=== PATIENT | female | born 1945 | race Caucasian/White ===

== ENCOUNTER → 2016-08-14 | Outpatient (CLI) | payer MEDICARE, OTHER ==
--- OUTSIDE RECORDS SUMMARY | 2016-08-14 13:37 | XMS REPORT | Continuity of Care Document ---
Author Author [facility] Organization [facility] Address Unknown Phone Unavailable Allergies Medications Problems Date Dx Coded Attending Type Code Diagnosis Diagnosed By 11/07/2015 JODI NEWMAN MD Ot Z12.31 ENCNTR SCREEN MAMMOGRAM FOR MALIGNANT NE Procedures Results Encounters ACCT No. Visit Date/Time Discharge Status Pt. Type Provider Facility Loc./Unit Complaint [id number] 10/16/2015 10:08:00 ACT Outpatient JODI NEWMAN MD [facility] RAD
--- NOTE | 2016-08-14 15:15 | Diagnostic Imaging Report ---
INDICATION: Left leg pain and numbness for eight months, low back pain. DISCUSSION: Three views of the lumbosacral spine were obtained, no comparison. There is mild rightward curvature of the lumbar spine, centered at L2-L3. No compression fracture. Advanced degenerative disc disease is noted diffusely throughout the lumbar spine. Grade 1 anterolisthesis is noted at the L4-L5 level, possibly secondary to advanced facet arthropathy which is also present diffusely throughout the lumbar spine. No significant degenerative disease within either sacroiliac joint. Soft tissues show moderate constipation. IMPRESSION: 1. Advanced degenerative changes and malalignment of the lumbar spine, as discussed above. 2. Constipation. Dictated by: Dictated on workstation # [id number]
--- NOTE | 2016-08-14 15:51 | Diagnostic Imaging Report ---
Sacrum and Coccyx. INDICATION: Pain. FINDINGS: AP and lateral views were obtained. There are no prior studies available for comparison. There is no fracture, dislocation, or acute bony abnormality evident. The distal sacrum and coccyx are difficult to visualize on the lateral view due to the patient's body habitus. There is mild symmetrical sclerosis of the sacroiliac joints. The soft tissues are unremarkable. IMPRESSION: There is no evidence for an acute bony abnormality. Dictated by: Dictated on workstation # [id number]
== END ==
LOC: RAD 13:33
PROVIDERS: ATTEND Internal Medicine
DX: M54.16 Radiculopathy, lumbar region (principal); R20.2 Paresthesia of skin
CPT/HCPCS: 72100; 72220

== ENCOUNTER → 2016-09-03 | Outpatient (CLI) | payer MEDICARE, OTHER ==
--- OUTSIDE RECORDS SUMMARY | 2016-09-03 11:59 | XMS REPORT | Continuity of Care Document ---
Author Author [facility] Organization [facility] Address Unknown Phone Unavailable Allergies Medications Problems Date Dx Coded Attending Type Code Diagnosis Diagnosed By 11/07/2015 JODI NEWMAN MD Ot Z12.31 ENCNTR SCREEN MAMMOGRAM FOR MALIGNANT NE 08/14/2016 JODI NEWMAN MD Ot Z12.31 ENCNTR SCREEN MAMMOGRAM FOR MALIGNANT NE 08/14/2016 JODI NEWMAN MD Ot M54.16 RADICULOPATHY, LUMBAR REGION 08/14/2016 JODI NEWMAN MD Ot R20.2 PARESTHESIA OF SKIN Procedures Results Encounters ACCT No. Visit Date/Time Discharge Status Pt. Type Provider Facility Loc./Unit Complaint [id number] 08/14/2016 13:33:00 ACT Outpatient JODI NEWMAN MD [facility] RAD LUMBAR RADICULOPATHY [id number] 10/16/2015 10:08:00 ACT Outpatient JODI NEWMAN MD [facility] RAD SCREENING
--- NOTE | 2016-09-03 13:08 | Diagnostic Imaging Report ---
PROCEDURE: MRI lumbar spine. TECHNIQUE: Multiplanar, multisequence MRI of the lumbar spine was performed without contrast. INDICATION: Low back pain. Left lower extremity pain and paresthesias. COMPARISON: Lumbar spine radiographs 08/14/2016. FINDINGS: There are 5 lumbar-type vertebral bodies. Mild right apex lumbar curvature. Grade 2 anterolisthesis of L4 on L5. Diffuse degenerative endplate changes with Modic type I signal changes at T11-T12. Bone marrow signal is otherwise unremarkable. Diffuse moderate to advanced degenerative facet arthropathy is greatest in the lower lumbar spine. No abnormal signal in the conus which terminates at L1. Normal configuration of the cauda equina without evidence of arachnoiditis. The visualized paravertebral soft tissues are unremarkable. T11-T12: Small annular disc bulge results in no substantial spinal canal or lateral recess narrowing. Disc space height loss and facet arthropathy result in moderate left and mild right neuroforaminal narrowing. T12-L1: No substantial spinal canal, lateral recess or neuroforaminal narrowing. L1-L2: There is a central disc extrusion with both inferior and superior migration. This combined with an annular disc bulge and ligamentous hypertrophy results in moderate spinal canal narrowing. Disc space height loss and facet arthropathy also contribute to advanced bilateral neuroforaminal narrowing. L2-L3: Annular disc bulge and ligamentous hypertrophy contribute to mild to moderate spinal canal narrowing with narrowing of the lateral recesses. Disc space height loss and facet arthropathy also contribute to advanced bilateral neuroforaminal narrowing. L3-L4: Annular disc bulge, ligamentous hypertrophy and facet arthropathy all contribute to advanced spinal canal narrowing. Disc space height loss and facet arthropathy also result in advanced bilateral neuroforaminal narrowing. L4-L5: The anterolisthesis, facet arthropathy and ligamentous hypertrophy all result in advanced spinal canal narrowing. Disc space height loss and facet arthropathy also contribute to advanced bilateral neuroforaminal narrowing. L5-S1: Small right paracentral disc extrusion with inferior migration mildly narrows the right lateral recess. There is no spinal canal or left lateral recess narrowing. No substantial neuroforaminal narrowing. IMPRESSION: 1. Spondylotic changes result in multilevel moderate to advanced spinal canal narrowing which is most advanced at L3-L4 and L4-L5 where there is complete loss of CSF signal about the cauda equina nerve roots. 2. Diffuse moderate and advanced neuroforaminal narrowing detailed above. Dictated by: Dictated on workstation # [id number]
--- NOTE | 2016-09-03 16:51 | Diagnostic Imaging Report ---
INDICATION: Pain. TECHNIQUE: Three views of the left ankle. 12:45 p.m. CORRELATION STUDY: None FINDINGS: There is internal fixation with a long thin nohemi through the distal fibula incompletely visualized. Additional cerclage wire over the distal fibula. Two partially threaded screws over the medial malleolus. Alignment overall is anatomic. There is no acute bony abnormality. Talar dome intact. The ankle mortise preserved. Well-corticated bone density adjacent medial malleolus likely owing to prior injury. Minimal spurring about the distal fibula and lateral talus. Mildly prominent calcaneal spur formation. IMPRESSION: Internal fixation hardware of the distal tibia and fibula. Negative for acute bony abnormality. Mild degenerative changes or perhaps traumatic changes present. Dictated by: Dictated on workstation # [id number]
== END ==
LOC: RAD 11:55
PROVIDERS: ATTEND Internal Medicine
DX: M47.816 Spondylosis without myelopathy or radiculopathy, lumbar region (principal); M48.06 Spinal stenosis, lumbar region; M25.572 Pain in left ankle and joints of left foot
CPT/HCPCS: 72148; 73610

== ENCOUNTER → 2018-06-09 | Outpatient (CLI) | payer MEDICARE, OTHER ==
--- NOTE | 2018-06-09 16:00 | Diagnostic Imaging Report ---
INDICATION: Irregular heartbeat and palpitations. TIME OF EXAM: 04:13 p.m. COMPARISON: No prior studies are available for comparison. FINDINGS: The heart size is normal. The pulmonary vascularity is unremarkable. The lungs are clear. No infiltrate, effusion or pneumothorax is detected. IMPRESSION: No acute cardiopulmonary process is detected. Dictated by: Dictated on workstation # [id number]
[2018-06-09 16:09] LABS: MEAN PLATELET VOLUME 11.5 FL (7.4-10.4); RED BLOOD COUNT 4.05 10^6/uL (4.35-5.85); RED CELL DISTRIBUTION WIDTH 14.4 % (10.0-14.5); WHITE BLOOD COUNT 9.8 10^3/uL (4.3-11.0)
[2018-06-09 16:14] LABS: BILIRUBIN,URINE NEGATIVE (NEGATIVE); CLARITY,URINE CLEAR; COLOR,URINE YELLOW; GLUCOSE, URINE (UA) NEGATIVE (NEGATIVE); KETONES,URINE NEGATIVE (NEGATIVE); LEUKOCYTE ESTERASE ,URINE 1+ (NEGATIVE); NITRITE,URINE NEGATIVE (NEGATIVE); PH,URINE 6 (5-9); PROTEIN,URINE NEGATIVE (NEGATIVE); UROBILINOGEN,URINE NORMAL (NORMAL)
[2018-06-09 16:21] LABS: WBC,URINE 0-2 /HPF
[2018-06-09 16:30] LABS: ALANINE AMINOTRANSFERASE 18 U/L (0-55); ALBUMIN 4.4 GM/DL (3.2-4.5); ALKALINE PHOSPHATASE 73 U/L (40-136); BILIRUBIN,TOTAL 0.2 MG/DL (0.1-1.0); BUN/CREATININE RATIO 19; CALCIUM 9.6 MG/DL (8.5-10.1); CARBON DIOXIDE 28 MMOL/L (21-32); CHLORIDE 105 MMOL/L (98-107); CREATINE KINASE 62 U/L (29-168); CREATININE SERUM 0.78 MG/DL (0.60-1.30); GFR ESTIMATED > 60; GLUCOSE 120 MG/DL (70-105); MAGNESIUM 2.2 MG/DL (1.8-2.4); POTASSIUM 3.5 MMOL/L (3.6-5.0); SODIUM 142 MMOL/L (135-145); TOTAL PROTEIN 7.4 GM/DL (6.4-8.2)
[2018-06-09 16:50] LABS: CREATINE KINASE MB 2.1 NG/ML (<6.6)
== END ==
LOC: CARD 15:30
PROVIDERS: ATTEND Physician Assistant
DX: I49.9 Cardiac arrhythmia, unspecified (principal); R00.2 Palpitations
CPT/HCPCS: 36415; 71046; 80053; 81000; 82550; 82553; 83735; 84443; 84484; 85027; 93005

== ENCOUNTER → 2018-07-12 | Outpatient (CLI) | payer MEDICARE, OTHER | LOC: CARD 10:21 | PROVIDERS: ATTEND Internal Medicine Interventional Cardiology | DX: R00.2 Palpitations (principal); I10 Essential (primary) hypertension; E78.5 Hyperlipidemia, unspecified | CPT/HCPCS: 93225; 93226 ==

== ENCOUNTER 2018-08-04 08:54 | Outpatient (RCR) | payer MEDICARE, OTHER | END 2018-11-02 | disposition home or self-care (01) | LOC: CARD 08:54 | PROVIDERS: ATTEND Internal Medicine Interventional Cardiology | DX: R00.2 Palpitations (principal); I10 Essential (primary) hypertension; E78.5 Hyperlipidemia, unspecified; I08.1 Rheumatic disorders of both mitral and tricuspid valves | CPT/HCPCS: 93306 ==

== ENCOUNTER 2018-08-12 09:18 | Outpatient (RCR) | payer MEDICARE, OTHER | END 2018-11-10 | disposition home or self-care (01) | LOC: CARD 09:18 | PROVIDERS: ATTEND Internal Medicine Interventional Cardiology | DX: I10 Essential (primary) hypertension (principal); R00.2 Palpitations; E78.5 Hyperlipidemia, unspecified ==

== ENCOUNTER 2018-09-16 09:34 | Day surgery (SDC) | payer MEDICARE, OTHER ==
[~2018-09-16] VITALS: Ht 157.5 cm; Wt 79.4 kg
--- OUTSIDE RECORDS SUMMARY | 2018-09-16 08:23 | XMS REPORT | Continuity of Care Document ---
Author Author [facility] Organization [facility] Address Unknown Phone Unavailable Allergies There is no data. Medications There is no data. Problems Date Dx Coded Attending Type Code Diagnosis Diagnosed By 11/07/2015 JODI NEWMAN MD, Ot Z12.31 ENCNTR SCREEN MAMMOGRAM FOR MALIGNANT NE 08/14/2016 JODI NEWMAN MD, Ot Z12.31 ENCNTR SCREEN MAMMOGRAM FOR MALIGNANT NE 08/14/2016 JODI NEWMAN MD, Ot M54.16 RADICULOPATHY, LUMBAR REGION 08/14/2016 JODI NEWMAN MD, Ot R20.2 PARESTHESIA OF SKIN 09/04/2016 JODI NEWMAN MD, Ot M25.572 PAIN IN LEFT ANKLE AND JOINTS OF LEFT FO 09/04/2016 JODI NEWMAN MD, Ot M47.816 SPONDYLOSIS W/O MYELOPATHY OR RADICULOPA 09/04/2016 JODI NEWMAN MD Ot M48.06 SPINAL STENOSIS, LUMBAR REGION 09/11/2016 JODI NEWMAN MD, Ot M54.16 RADICULOPATHY, LUMBAR REGION 09/11/2016 JODI NEWMAN MD, Ot R20.2 PARESTHESIA OF SKIN 09/24/2016 JODI NEWMAN MD Ot M25.572 PAIN IN LEFT ANKLE AND JOINTS OF LEFT FO 09/24/2016 JODI NEWMAN MD, Ot M47.816 SPONDYLOSIS W/O MYELOPATHY OR RADICULOPA 09/24/2016 JODI NEWMAN MD, Ot M48.06 SPINAL STENOSIS, LUMBAR REGION 06/09/2018 JODI NEWMAN MD, Ot Z12.31 ENCNTR SCREEN MAMMOGRAM FOR MALIGNANT NE 06/09/2018 JODI NEWMAN MD, Ot M54.16 RADICULOPATHY, LUMBAR REGION 06/09/2018 JODI NEWMAN MD, Ot R20.2 PARESTHESIA OF SKIN 06/09/2018 JODI NEWMAN MD Ot M25.572 PAIN IN LEFT ANKLE AND JOINTS OF LEFT FO 06/09/2018 JODI NEWMAN MD, Ot M47.816 SPONDYLOSIS W/O MYELOPATHY OR RADICULOPA 06/09/2018 TRENT ZUNIGA, JODI Solomon Ot M48.06 SPINAL STENOSIS, LUMBAR REGION 06/30/2018 RIGOBERTO MAYA Ot I49.9 CARDIAC ARRHYTHMIA, UNSPECIFIED 06/30/2018 RIGOBERTO MAYA Ot R00.2 PALPITATIONS 07/14/2018 Amada BROWN MD Ot E78.5 HYPERLIPIDEMIA, UNSPECIFIED 07/14/2018 Amada BROWN MD, Ot I10 ESSENTIAL (PRIMARY) HYPERTENSION 07/14/2018 Amada BROWN MD, Ot R00.2 PALPITATIONS 08/04/2018 Amada BROWN MD, Ot E78.5 HYPERLIPIDEMIA, UNSPECIFIED 08/04/2018 Amada BROWN MD, Ot I10 ESSENTIAL (PRIMARY) HYPERTENSION 08/04/2018 Amada BROWN MD Ot R00.2 PALPITATIONS 09/10/2018 Amada BROWN MD, Ot E78.5 HYPERLIPIDEMIA, UNSPECIFIED 09/10/2018 Amada BROWN MD Ot I08.1 RHEUMATIC DISORDERS OF BOTH MITRAL AND T 09/10/2018 Amada BROWN MD Ot I10 ESSENTIAL (PRIMARY) HYPERTENSION 09/10/2018 Amada BROWN MD Ot R00.2 PALPITATIONS Procedures There is no data. Results Test Result Range Automated blood complete blood count (hemogram) panel - 06/09/18 16:05 Blood leukocytes automated count (number/volume) 9.8 10*3/uL 4.3-11.0 Blood erythrocytes automated count (number/volume) 4.05 10*6/uL 4.35-5.85 Venous blood hemoglobin measurement (mass/volume) 12.0 g/dL 11.5-16.0 Blood hematocrit (volume fraction) 37 % 35-52 Automated erythrocyte mean corpuscular volume 92 [foz_us] 80-99 Automated erythrocyte mean corpuscular hemoglobin (mass per erythrocyte) 30 pg 25-34 Automated erythrocyte mean corpuscular hemoglobin concentration measurement ( mass/volume) 32 g/dL 32-36 Automated erythrocyte distribution width ratio 14.4 % 10.0-14.5 Automated blood platelet count (count/volume) 307 10*3/uL 130-400 Automated blood platelet mean volume measurement 11.5 [foz_us] 7.4-10.4 Comprehensive metabolic panel - 06/09/18 16:05 Serum or plasma sodium measurement (moles/volume) 142 mmol/L 135-145 Serum or plasma potassium measurement (moles/volume) 3.5 mmol/L 3.6-5.0 Serum or plasma chloride measurement (moles/volume) 105 mmol/L 98-107 Carbon dioxide 28 mmol/L 21-32 Serum or plasma anion gap determination (moles/volume) 9 mmol/L 5-14 Serum or plasma urea nitrogen measurement (mass/volume) 15 mg/dL 7-18 Serum or plasma creatinine measurement (mass/volume) 0.78 mg/dL 0.60-1.30 Serum or plasma urea nitrogen/creatinine mass ratio 19 NRG Serum or plasma creatinine measurement with calculation of estimated glomerular filtration rate > NRG Serum or plasma glucose measurement (mass/volume) 120 mg/dL 70-105 Serum or plasma calcium measurement (mass/volume) 9.6 mg/dL 8.5-10.1 Serum or plasma total bilirubin measurement (mass/volume) 0.2 mg/dL 0.1-1.0 Serum or plasma alkaline phosphatase measurement (enzymatic activity/volume) 73 U/L 40-136 Serum or plasma aspartate aminotransferase measurement (enzymatic activity/ volume) 16 U/L 5-34 Serum or plasma alanine aminotransferase measurement (enzymatic activity/volume ) 18 U/L 0-55 Serum or plasma protein measurement (mass/volume) 7.4 g/dL 6.4-8.2 Serum or plasma albumin measurement (mass/volume) 4.4 g/dL 3.2-4.5 CALCIUM CORRECTED 9.3 mg/dL 8.5-10.1 Magnesium - 06/09/18 16:05 Magnesium 2.2 mg/dL 1.8-2.4 Serum or plasma creatine kinase measurement (enzymatic activity/volume) - 06/09 16:05 Serum or plasma creatine kinase measurement (enzymatic activity/volume) 62 U/L 29-168 Serum or plasma creatine kinase MB measurement (enzymatic activity/volume) - 16:05 Serum or plasma creatine kinase MB measurement (enzymatic activity/volume) 2.1 ng/mL <6.6 Serum or plasma troponin i.cardiac measurement (mass/volume) - 06/09/18 16:05 Serum or plasma troponin i.cardiac measurement (mass/volume) < ng/ mL <0.30 THYROID STIMULATING HORMONE - 06/09/18 16:05 THYROID STIMULATING HORMONE 0.68 u[iU]/mL 0.35-4.94 Complete urinalysis with reflex to culture - 06/09/18 16:10 Urine color determination YELLOW NRG Urine clarity determination CLEAR NRG Urine pH measurement by test strip 6 5-9 Specific gravity of urine by test strip 1.015 1.016- 1.022 Urine protein assay by test strip, semi-quantitative NEGATIVE NEGATIVE Urine glucose detection by automated test strip NEGATIVE NEGATIVE Erythrocytes detection in urine sediment by light microscopy NEGATIVE NEGATIVE Urine ketones detection by automated test strip NEGATIVE NEGATIVE Urine nitrite detection by test strip NEGATIVE NEGATIVE Urine total bilirubin detection by test strip NEGATIVE NEGATIVE Urine urobilinogen measurement by automated test strip (mass/volume) NORMAL NORMAL Urine leukocyte esterase detection by dipstick 1+ NEGATIVE Automated urine sediment erythrocyte count by microscopy (number/high power field) NONE NRG Automated urine sediment leukocyte count by microscopy (number/high power field ) [HPF] NRG Bacteria detection in urine sediment by light microscopy NONE NRG Crystals detection in urine sediment by light microscopy NONE NRG Casts detection in urine sediment by light microscopy NONE NRG Mucus detection in urine sediment by light microscopy NEGATIVE NRG Complete urinalysis with reflex to culture NO NRG Encounters ACCT No. Visit Date/Time Discharge Status Pt. Type Provider Facility Loc./Unit Complaint [id number] 08/12/2018 09:18:00 08/12/2018 23:59:59 CLS Outpatient Amada BROWN MD [facility] CARD PALPITATIONS, HYPERTENSION, HYPERLIPIDEMIA [id number] 08/04/2018 08:54:00 08/04/2018 23:59:59 CLS Outpatient Amada BROWN MD [facility] CARD PALPITATIONS, HYPERTENSION, HYPERLIPIDEMIA [id number] 07/12/2018 10:21:00 07/12/2018 23:59:59 CLS Outpatient Amada BROWN MD [facility] CARD PALPITATIONS, HYPERTENSION, HYPERLIPIDEMIA [id number] 07/07/2018 15:45:00 07/07/2018 23:59:59 CLS Preadmit Amada BROWN MD [facility] CARD PALPITATIONS, HYPERTENSION, HYPERLIPIDEMIA [id number] 06/09/2018 15:30:00 06/09/2018 23:59:59 CLS Outpatient RIGOBERTO MAYA [facility] CARD IRREGULAR HEARTBEAT , PALPITATIONS [id number] 09/03/2016 11:55:00 09/03/2016 23:59:59 CLS Outpatient JODI NEWMAN MD [facility] RAD LBP,LT ANKLE PAIN [id number] 08/14/2016 13:33:00 08/14/2016 23:59:59 CLS Outpatient JODI NEWMAN MD [facility] RAD LUMBAR RADICULOPATHY [id number] 10/16/2015 10:08:00 10/16/2015 23:59:59 CLS Outpatient JODI NEWMAN MD [facility] RAD SCREENING [id number] 09/16/2018 10:30:00 PEN Preadmit Amada BROWN MD [facility] CATH PALPITATIONS
[~2018-09-16 09:34] MED LIST: LIDOCAINE 1% INJ 20 ML 20 ML VIAL ONE
[2018-09-16 10:13] VITALS: BP 166/82
--- NOTE | 2018-09-16 14:08 | Implantation of Loop Monitor ---
Implant of Loop Monitior IMPLANTATION OF LOOP MONITOR REPORT DATE OF PROCEDURE: 09/16/18 PERFORMING PHYSICIAN: Dr. Shar Guerin. INDICATION: Palpitations, paroxysmal atrial tachycardia. PREOP DIAGNOSIS: Palpitations, paroxysmal atrial tachycardia, Long-term surveillance of atrial fibrillation POSTOP DIAGNOSIS: Palpitations, proximal atrial tachycardia, s/p implantation of loop recorder. PROCEDURE DETAILS: The patient is a 73 female with history of paroxysmal atrial tachycardia requiring long-term surveillance. Therefore implantable loop recorder was discussed and agreed with the patient. Informed consent was taken. All risks and complications were discussed at length. The patient was draped and prepped in the usual sterile fashion. Local anesthesia was lidocaine, which was given in the substernal area close to the 4th intercostal space. Loop monitor was implanted according to the protocol. Steri-Strips were placed at the end of the procedure. There were no complications and the patient tolerated the procedure well. The device was interrogated with a voltage of 0.39 mV. ANESTHESIA: Local anesthesia with lidocaine. COMPLICATIONS: None CONTRAST/FLUOROSCOPY: None CONCLUSION: 1. Successful implantation of loop monitor for palpitations, paroxysmal atrial tachycardia. 2. No complication and the patient tolerated the procedure well. Rodriguez Guerin MD, RS, CCDS Cardiac Electrophysiology Amada GUERIN MD Sep 16, 2018 2:08 pm
== END 2018-09-16 11:15 | disposition home or self-care (01) ==
LOC: CATH 09:34
PROVIDERS: ATTEND Internal Medicine Interventional Cardiology
DX: R00.2 Palpitations (principal); I47.1 Supraventricular tachycardia; I10 Essential (primary) hypertension; E78.5 Hyperlipidemia, unspecified; Z82.49 Family history of ischemic heart disease and other diseases of the circulatory system; Z87.891 Personal history of nicotine dependence; Z79.899 Other long term (current) drug therapy
CPT/HCPCS: 33285

== ENCOUNTER → 2018-12-07 | Outpatient (CLI) | payer MEDICARE, OTHER ==
--- NOTE | 2018-12-07 09:36 | Diagnostic Imaging Report ---
PROCEDURE: CT urinary tract, rule out kidney stone. TECHNIQUE: Multiple contiguous axial images were obtained through the abdomen and pelvis without the use of intravenous contrast. Auto Exposure Controls were utilized during the CT exam to meet ALARA standards for radiation dose reduction. INDICATION: Left flank pain. COMPARISON: None available. FINDINGS: Evaluation of the abdominal viscera is mildly limited without contrast. Lower chest: The lung bases are clear. No pericardial or pleural effusion. Peritoneum: No free intraperitoneal air or fluid. Liver and biliary system: 1.2 x 1.3 cm left hepatic cyst. Otherwise, unenhanced liver is grossly normal. The gallbladder is normal. No biliary duct dilation. Spleen and Pancreas: Spleen is normal. Unenhanced pancreas is grossly normal. Adrenals: Low-attenuation nodular left adrenal gland is likely due to a small adenoma or benign hyperplasia. Right adrenal gland is normal. tract: There are a few small nonobstructing stones in lower pole of the right kidney with the largest measuring 5 mm. Additional punctate 2 mm nonobstructing left renal stone. No ureteral stone on either side. No obstructive uropathy. Uterus is normal in appearance. No adnexal mass. GI tract: Stomach is filled with fluid and there is no wall thickening. No bowel obstruction. No pericolonic inflammatory changes. Sigmoid colon diverticulosis without diverticulitis. Vasculature and Lymph nodes: Normal caliber aorta with scattered calcified plaquing. No abdominal or pelvic lymphadenopathy. Musculoskeletal: No concerning osseous lesion. IMPRESSION: 1. Bilateral nonobstructing renal stones range in size from 1-5 mm. No obstructive uropathy. 2. Sigmoid colon diverticulosis without diverticulitis. Dictated by: Dictated on workstation # [id number]
--- NOTE | 2018-12-07 09:54 | Diagnostic Imaging Report ---
INDICATION: Left flank pain, nephrolithiasis. Study interpreted in correlation with abdominal pelvic CT performed earlier. 4 mm stone projecting over lower pole of the right kidney is unchanged. A tiny 2 mm stone is imperceptible at radiograph. Pelvic phleboliths project in unchanged alignment. The bowel gas pattern normal. IMPRESSION: Right renal calculus and pelvic phleboliths unchanged. Dictated by: Dictated on workstation # [id number]
== END ==
LOC: RAD 09:10
PROVIDERS: ATTEND Urology
DX: N20.0 Calculus of kidney (principal); K57.30 Diverticulosis of large intestine without perforation or abscess without bleeding
CPT/HCPCS: 74018; 74176

== ENCOUNTER → 2020-09-17 | Outpatient (CLI) | payer MEDICARE, OTHER ==
--- NOTE | 2020-09-17 18:05 | Diagnostic Imaging Report ---
EXAM: Ultrasound right breast, limited. INDICATION: Right breast mass The diagnostic mammogram performed earlier today failed to show any sign of a mass in the region of the patient's palpable abnormality in the right axilla. On this exam, there is no discrete solid or cystic mass identified either. It may be that the palpable abnormality in question is related to fibroglandular tissue and/or fat. If there is clinical concern regarding an underlying mass however, then biopsy should still be considered. IMPRESSION: There is no evidence for malignancy. Clinical follow-up is recommended. ACR BI-RADS Category 1: Negative. Result letter will be mailed to the patient. Note: At least 10% of breast cancer is not imaged by mammography. Dictated by: Dictated on workstation # [id number]
--- NOTE | 2020-09-18 08:42 | Diagnostic Imaging Report ---
EXAMINATION: Digital mammogram bilateral diagnostic with CAD. INDICATION: Right axillary mass. COMPARISON: This study was compared to the prior exams of 10/16/2015 and 10/10/2009. PERSONAL HISTORY: At this time, the patient does complain of a mass in the right axilla. FINDINGS: A marker was placed over the area of concern; however, the marker can only be visualized on the MLO view. There is no primary or secondary sign of malignancy in the region of the right axilla. Even so, I would recommend that ultrasound be performed for further study. The fibroglandular tissue in both breasts is heterogeneously dense. This does limit the sensitivity of this exam. When compared to the previous study, there does not appear to have been any significant change in the appearance of the breasts. There is no primary or secondary sign of malignancy noted. However, in the interval since the prior study, a loop recorder device has been inserted on the left. IMPRESSION: 1. There is no evidence of malignancy. In particular, there is no abnormality to correspond to the patient's reported mass in the right axilla. Ultrasound would be recommended for further study. 2. There has been interval insertion of a loop recorder device on the left. ACR BI-RADS Category 0: Incomplete. (Needs additional imaging evaluation). Result letter will be mailed to the patient. Note: At least 10% of breast cancer is not imaged by mammography. Dictated by: Dictated on workstation # [id number]
== END ==
LOC: RAD 12:45
PROVIDERS: ATTEND Nurse Practitioner Family
DX: N63.31 Unspecified lump in axillary tail of the right breast (principal); R59.0 Localized enlarged lymph nodes
CPT/HCPCS: 76642; 77066; G0279; 77062

== ENCOUNTER → 2020-09-26 | Outpatient (CLI) | payer MEDICARE, OTHER ==
[~2020-09-26] VITALS: Ht 157 cm; Wt 78.0 kg
[~2020-09-26] MED LIST changes: +CATHETER FLUSH 10 ML SYR IV PRN; -LIDOCAINE 1% INJ 20 ML 20 ML VIAL ONE; +REGADENOSON 0.4 MG/5 ML SYR (LEXISCAN) IV ONE
[2020-09-26 17:43] VITALS: BP 166/86
--- NOTE | 2020-09-26 17:43 | Cardiology Stress Test Report ---
Stress Test Report Date of Procedure/Referring: Date of Procedure: Sep 26, 2020 PCP Johanna Manzo MD Admitting Physician Redd Shearer MD Indications: HTN Baseline Heart Rate: 67 Baseline Blood Pressure: Blood Pressure Systolic: 166 Blood Pressure Diastolic: 86 Baseline EKG: Baseline EKG: NSR Summary After explaining the procedure to the patient, she signed a consent and then brought to the stress nuclear laboratory. Patient received 0.4 mg Lexiscan for stress test, ECG, heart rate and blood pressure were monitored continuously. Resting and stress dose of radio tracer were injected, imaging was acquired and reviewed in short axis, horizontal long axis and vertical long axis views. TID: 1.08 SSS: 2 SDS: 2 EF: 75 1. Patient tolerated Lexiscan well 2. No significant ischemia or infarction on SPECT images 3. Normal left ventricular size, EF 75% JOHANNA MANZO MD Sep 26, 2020 17:43
== END ==
LOC: CARD 08:30
PROVIDERS: ATTEND Internal Medicine Cardiovascular Disease
DX: I10 Essential (primary) hypertension (principal); R07.9 Chest pain, unspecified
CPT/HCPCS: 78452; 93017; A9502

== ENCOUNTER → 2020-10-03 | Outpatient (CLI) | payer MEDICARE, OTHER | LOC: CARD 11:25 | PROVIDERS: ATTEND Internal Medicine Cardiovascular Disease | DX: I10 Essential (primary) hypertension (principal); I34.0 Nonrheumatic mitral (valve) insufficiency | CPT/HCPCS: 93306 ==

== ENCOUNTER → 2022-07-01 | Outpatient (CLI) | payer MEDICARE, OTHER ==
--- NOTE | 2022-07-01 14:32 | Diagnostic Imaging Report ---
Indication: Routine screening. Comparison is made with prior mammogram 09/17/2020 and 10/16/2015. 2-D and 3-D bilateral screening mammography was performed with CAD. CAD is utilized. The current study was also evaluated with a Computer Aided Detection (CAD) system. Both breasts are heterogeneously dense, limiting the sensitivity of mammography. Cardiac loop recorder overlies the medial breast tissues on the left. The parenchymal pattern appears stable. There are occasional benign consultations. No mass or malignant appearing microcalcifications are seen. Axillae are unremarkable. IMPRESSION: BI-RADS Category 2 No mammographic features suspicious for malignancy are identified. ACR BI-RADS Category 2: Benign findings. Result letter will be mailed to the patient. Note: At least 10% of breast cancer is not imaged by mammography. Dictated by: Dictated on workstation # [id number]
== END ==
LOC: RAD 09:30
PROVIDERS: ATTEND Internal Medicine
DX: Z12.31 Encounter for screening mammogram for malignant neoplasm of breast (principal)
CPT/HCPCS: 77063; 77067

== ENCOUNTER → 2023-02-18 | Outpatient (CLI) | payer MEDICARE, OTHER ==
[~2023-02-18] MED LIST changes: +HOLD METFORMIN - RECEIVED CONTRAST 20 ML VIAL IV SCH; +IOHEXOL 350 MG/ML 100 ML (OMNIPAQUE 350) VIAL IV ONE; +NS 100 ML (IVPB) BAG IV ONE; -REGADENOSON 0.4 MG/5 ML SYR (LEXISCAN) IV ONE
--- NOTE | 2023-02-18 13:51 | Diagnostic Imaging Report ---
PROCEDURE: CT abdomen and pelvis with contrast. TECHNIQUE: Multiple contiguous axial images were obtained through the abdomen and pelvis after administration of intravenous contrast. Auto Exposure Controls were utilized during the CT exam to meet ALARA standards for radiation dose reduction. All CT scans use one or more of the following dose optimizing techniques: automated exposure control, MA and/or KvP adjustment based on patient size and exam type or iterative reconstruction. INDICATION: Left-sided abdominal pain. Patient does have a history of diverticulitis and kidney stones. Correlation is made with prior CT from 12/07/2018. The lung bases are clear. Low-attenuation lesion left lobe liver appears stable and most suggestive of a cyst. There does appear to be some generalized low attenuation throughout the liver consistent with hepatic steatosis. Gallbladder is unremarkable. No biliary duct dilatation is seen. The pancreas and spleen are unremarkable. A right-sided nonobstructing renal calculi are noted, largest approximately 5 mm in size. There is no hydronephrosis. Aorta is nonaneurysmal. There is a nodule in the left adrenal gland which appears to be fairly stable at 11 mm. The right adrenal gland is unremarkable. Small and large bowel loops are normal caliber. There is diverticulosis of the descending and sigmoid colon but no evidence of acute diverticulitis. Bladder and uterus are unremarkable. There is no ascites. Postop changes of posterior instrumented fusion is noted at L4-L5 level. IMPRESSION: Nonobstructing right-sided nephrolithiasis. No ureteral calculi or hydronephrosis is identified. Uncomplicated diverticulosis. Dictated by: Dictated on workstation # [id number]
== END ==
LOC: RAD 11:12
PROVIDERS: ATTEND Internal Medicine
DX: N20.0 Calculus of kidney (principal); I48.0 Paroxysmal atrial fibrillation; D64.9 Anemia, unspecified
CPT/HCPCS: 74177